=== PATIENT | male | born 1975 | race Caucasian/White ===

== ENCOUNTER 2020-02-29 05:20 | Emergency (ER) | payer BC ==
[2020-02-29] MEDS ORDERED: OXYCODONE-ACETAMINOPHEN 5-325 MG TABLET PO ONE (06:36)
--- NOTE | 2020-02-29 07:52 | RADIOLOGY REPORT (SQ) ---
EXAM DESCRIPTION: XR SHOULDER 2 OR MORE VIEWS COMPLETED DATE/TME: 02/29/2020 05:41 CLINICAL HISTORY: 44 years Male, fall onto shoulder and pain COMPARISON: None. Findings: Anterior dislocation of the right glenohumeral joint. Cervical spinal hardware. Bones, joints, and soft tissues of the RIGHT XR SHOULDER 2 VIEWS appear otherwise unremarkable. IMPRESSION: Anterior dislocation of the right glenohumeral joint.
[2020-02-29] MEDS ORDERED: KETAMINE HCL INJ 500 MG/10 ML VIAL IV ONE ×2 (07:57→10:38)
--- NOTE | 2020-02-29 12:07 | RADIOLOGY REPORT (SQ) ---
EXAM DESCRIPTION: SHOULDER RIGHT 1 VIEW IMAGES COMPLETED DATE/TIME: 02/29/2020 11:35 am REASON FOR STUDY: RE XRAY COMPARISON: 02/29/2020 NUMBER OF VIEWS: Two views. TECHNIQUE: Frontal and Y-view images acquired of the right shoulder. LIMITATIONS: Examination limited to two views peer FINDINGS: MINERALIZATION: Normal. BONES: No acute fracture. No worrisome bone lesions. JOINTS: Status post close reduction of a previously demonstrated anterior, inferior dislocation. VISUALIZED LUNGS AND RIBS: No pneumothorax. No rib fracture. SOFT TISSUES: No radiopaque foreign body. OTHER: No other significant finding. IMPRESSION: Limited examination. Status post closed reduction of a glenohumeral dislocation without evidence of fracture. TECHNICAL DOCUMENTATION: JOB ID: [id number] 2010 Seen- All Rights Reserved Reading location - IP/workstation name: [email or web address]
--- NOTE | 2020-02-29 12:20 | ER Document Report ---
Entered by DELLA BLAIR SCRIBE 02/29/20 0813 Acting as scribe for:JASMINE MUÑOZ MD ED Extremity Problem, Upper - General Chief Complaint: Fall Injury Stated Complaint: HAND INJURY Time Seen by Provider: 02/29/20 07:50 Information source: Patient Notes: This 44 year old male patient presents to the emergency department today with right shoulder pain. Patient states he was at a BBQ last night and tripped on the sidewalk around 9 pm. Patient states he fell on his right shoulder on the grass and denies hitting his head, or loss of consciousness. Patient states his shoulder pain was mild last night and went to sleep, but the pain worsened overnight. - Related Data Allergies/Adverse Reactions: No Known Allergies Allergy (Verified 02/29/20 05:36) Past Medical History - General Information source: Patient - Social History Smoking Status: Never Smoker Cigarette use (# per day): No Chew tobacco use (# tins/day): No Frequency of alcohol use: Social Drug Abuse: None Family History: Reviewed & Not Pertinent Past Surgical History: Reports: Other - Neck fused Review of Systems - Review of Systems Constitutional: No symptoms reported EENT: No symptoms reported Cardiovascular: No symptoms reported Respiratory: No symptoms reported Gastrointestinal: No symptoms reported Genitourinary: No symptoms reported Male Genitourinary: No symptoms reported Musculoskeletal: See HPI, Other - R shoulder pain Skin: No symptoms reported Hematologic/Lymphatic: No symptoms reported Neurological/Psychological: See HPI. denies: Lost consciousness -: Yes All other systems reviewed and negative Physical Exam - Vital signs Vitals: Temp Pulse Resp BP Pulse Ox 97.7 F 94 18 164/98 H 96 02/29/20 05:27 02/29/20 05:27 02/29/20 05:27 02/29/20 05:27 02/29/20 05:27 - General General appearance: Appears well, Alert - HEENT Head: Normocephalic, Atraumatic Eyes: Normal Pupils: PERRL Neck: Normal, Supple - Respiratory Respiratory status: No respiratory distress Chest status: Nontender Breath sounds: Normal Chest palpation: Normal - Cardiovascular Rhythm: Regular Heart sounds: Normal auscultation, S1 appreciated, S2 appreciated Murmur: No - Abdominal Inspection: Normal Distension: No distension Bowel sounds: Normal Tenderness: Nontender - Extremities General lower extremity: Normal inspection, Normal ROM. No: Edema Notes: Normal inspection of left upper extremity. Right upper extremity is held in place with a sling. Limited ROM and pain with movement of right shoulder. Report shows dislocation of right shoulder. - Neurological Neuro grossly intact: Yes Cognition: Normal Orientation: AAOx4 Speech: Normal - Psychological Associated symptoms: Normal affect, Normal mood - Skin Skin Temperature: Warm Skin Moisture: Dry Skin Color: Normal Course - Re-evaluation Re-evalutation: 02/29/20 12:04 Patient resting comfortably at this time post procedure of a very anterior dislocation right shoulder. - Vital Signs Vital signs: Temp Pulse Resp BP Pulse Ox 97.7 F 106 H 16 178/101 H 97 02/29/20 05:36 02/29/20 09:44 02/29/20 10:57 02/29/20 10:57 02/29/20 10:57 02/29/20 12:04 Vital signs show blood pressure 178/101 afebrile pulse 106 pulse ox 97% - Diagnostic Test Radiology reviewed: Image reviewed, Reports reviewed Radiology results interpreted by me: 02/29/20 12:04 Initial x-ray of shoulder shows anterior dislocation of the right shoulder. Postprocedure is been a successful reduction of the anterior dislocation of the right shoulder no fracture seen. Procedures - Conscious Sedation Conscious sedation Time started: 10:30 Time completed: 10:45 Consent obtained: Yes Indication: closed reduction of right shoulder Last meal: yesterday Prior complications: Procedural sedation - keppra induction of procedural sedation Emergent conditions applies.: E. - ASA Classification Airway Evaluation: Obese Mallampati Classification: Class 3 Used during procedure: Suction available Medications administered: Ketamine - 450 mg of ketamine I personally performed/intraservice time: Sedation, Procedure, 31-45 min - successful reduction of right shoulder anterior dislocation. Complications: No Discharge - Discharge Clinical Impression: Accidental fall, Dislocation of right shoulder joint Condition: Stable Disposition: HOME, SELF-CARE Additional Instructions: Shoulder Dislocation You've had a shoulder dislocation. Even after the shoulder is put back in place, careful care is needed to prevent further problems. As the shoulder dislocated, injury to the joint itself occurred. This must be allowed to heal. The usual treatment is a shoulder immobilizing sling. If this is your first dislocation, it must be left in place until the doctor allows you to remove it. This is important. Ice pack the shoulder frequently. One of the most important aspects of care for a shoulder dislocation is mobility exercises and strengthening exercises. You'll start these when it's safe to start moving the shoulder joint. Be sure to keep your follow-up appointments. If you develop numbness in the arm or hand, weakness of the hand muscles, arm swelling, or arm discoloration, call the doctor or return immediately. Follow-up with orthopedic physician. Prescriptions: Ibuprofen [Motrin 800 mg Tablet] 800 mg PO Q8H PRN #30 tab PRN Reason: pain Oxycodone HCl/Acetaminophen [Oxycodone-Acetaminophen 10-325] 1 each PO TID PRN 3 Days #9 tablet PRN Reason: For Pain Scale 4-5 I personally performed the services described in the documentation, reviewed and edited the documentation which was dictated to the scribe in my presence, and it accurately records my words and actions.
[2020-02-29 12:23] VITALS: BP 174/107
== END 2020-02-29 12:26 | disposition home or self-care (01) ==
LOC: ER 05:20
DX: S43.014A Anterior dislocation of right humerus, initial encounter (principal); W01.0XXA Fall on same level from slipping, tripping and stumbling without subsequent striking against object, initial encounter
CPT/HCPCS: 99283; 73020; 73030; 23650; J3490